=== PATIENT | female | born 1990 | race African-American/Black ===

== ENCOUNTER 2016-09-11 19:21 | Inpatient (IN) | payer OTHER ==
--- NOTE | ~2016-09-11 | DS ---
Unit #: [id number] #: [id number] Patient: HECTOR HERMAN [id number] [facility] [address] [place] [address] [id number] I MR#: [id number] NAME: HECTOR HERMAN ROOM: [facility] Age: 26 Sex: F Admission Date: 09/11/2016 : 1990 Discharge Date: 09/12/2016 Attending Physician: Danilo Mays M.D. DISCHARGE SUMMARY REASON FOR ADMISSION The patient is 26-year-old female, admitted to the [facility] unit after she had voiced suicidal ideation to her therapist. HOSPITAL COURSE The patient was admitted to the [facility] unit and placed on suicide precautions. All home medications were continued. The patient was seen by this physician on the morning of 09/12/2016, at that time, she vehemently denied suicidal ideation stating that she "just had a bad day." She cited her devotion to her children as reason to remain alive and stated a wish to attend buddhist for [employer] and an [employer] on the evening of the discharge. In the absence of active suicidal ideation, the patient was not felt to meet criteria for involuntary hospitalization. As per her request, discharge was ordered. FINAL DIAGNOSES Major depressive disorder, recurrent, moderate; asthma; hypertension; migraine headache; morbid obesity. DISPOSITION ON DISCHARGE The patient is discharged on the following medications; Proventil HFA 2 puffs q.4 hours p.r.n. shortness of air, Singulair 10 mg at bedtime for environmental allergies, Symbicort 2 puffs b.i.d. for shortness of air, clonazepam 1 mg at bedtime for insomnia, vitamin D 50,000 units weekly for vitamin supplementation, Zanaflex 4 mg q.8 hours p.r.n. muscle stiffness, Pristiq 100 mg daily for depression, Toprol-XL 50 mg once daily for hypertension, Flomax 0.4 mg once daily for urinary symptoms. DISCHARGE INSTRUCTIONS No dietary or physical restrictions were placed upon the patient at the time of discharge. FOLLOWUP She will follow through the auspices of previous providers in the [place], [place] area. PROGNOSIS Her prognosis is considered good. Dictated by... Danilo Mays M.D. Unit #: [id number] #: [id number] Patient: HECTOR HERMAN MARIA A/vani TD: 09/12/2016 23:05 JOB #: [id number] DISCHARGE SUMMARY Page 1 of 1 X Danilo Mays MD DISCHARGE SUMMARY
--- NOTE | ~2016-09-11 | HP ---
Unit #: [id number] #: [id number] Patient: HECTOR HERMAN [id number] [place] [address] [id number] I MR#: [id number] NAME: HECTOR HERMAN ROOM: [facility] Age: 26 Sex: F Admission Date: 09/11/2016 : 1990 Attending Physician: Danilo Mays M.D. Admitting Physician: Danilo Mays M.D. Primary Care Physician: Primary Care Physician No HISTORY AND PHYSICAL HISTORY OF PRESENT ILLNESS The patient is a 26-year-old female admitted to [address] [place] [address] on 09/11/2016 for suicidal ideation. PAST MEDICAL HISTORY 1. Morbid obesity. 2. Hypertension. 3. Migraines. 4. Allergies. 5. Asthma. PAST SURGICAL HISTORY 1. Cholecystectomy. 2. ALLERGIES Doxycycline and BuSpar. 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 She denies alcohol, tobacco and drug use. FAMILY HISTORY Noncontributory. REVIEW OF SYSTEMS CONSTITUTIONAL: No fever or chills. HEENT: Denies any sore throat, ear pain or runny nose. CARDIOVASCULAR: Denies chest pain, irregular heart rhythm or palpitations. CHEST: Denies shortness of breath or cough. No hemoptysis. GASTROINTESTINAL: Denies nausea, vomiting, diarrhea or chronic constipation. ENDOCRINE: Denies history of increased thirst or urination. No recent significant weight loss or gain. GENITOURINARY: Denies dysuria, frequency, or hematuria. SKIN: Denies any rashes. HEMATOLOGIC: Denies history of increased bleeding or bruising. MUSCULOSKELETAL: Denies any hot, swollen joints. No generalized muscle pain. NEUROLOGIC: Denies problems with vision or speech. No frequent, severe headaches. No numbness, tingling or weakness in any extremities. Denies loss of bladder or bowel control. Unit #: [id number] #: [id number] Patient: HECTOR HERMAN CURRENT MEDICATIONS 1. EpiPen. 2. Ventolin. 3. Singulair. 4. Dulera. 5. Klonopin. 6. Vitamin D. 7. Zanaflex. 8. Zomig. 9. Pristiq. 10. Metoprolol. 11. Tamsulosin. PHYSICAL EXAMINATION GENERAL: She is awake, alert, oriented in no acute distress. VITAL SIGNS: Temperature 98.5, heart rate 78, respirations 20, blood pressure 132/89. HEIGHT: 5 feet 4. WEIGHT: 348 pounds. SKIN: Warm and dry without rash or lesion. HEENT: Normocephalic. TMs not viewed. Oral and nasal passages clear. Conjunctivae clear. PERRLA. EOMs intact. NECK: Supple without lymphadenopathy or thyromegaly. HEART: Regular rate and rhythm without murmur. LUNGS: Clear. ABDOMEN: Soft, nontender. : Not done. EXTREMITIES: No evidence of cyanosis, clubbing or edema. Moves all without focal deficit. NEUROLOGICAL: Grossly within normal limits. Cranial Nerves: II: Visual lockhart are intact. III, IV AND : Extraocular movements are intact. Pupils are equal, round and reactive to light. V: Facial sensation is grossly normal. VII: Facial movements and expression are normal. VIII: Auditory acuity grossly intact. IX, X: Uvula is midline. Phonation is normal. XI: Patient shrugs shoulders and turns head normally. XII: Tongue protrudes in the midline. Sensory and Motor Function: Sensory and motor sensation is grossly normal. Motor: moves all extremities well. Coordination: Gait is normal. Deep Tendon Reflexes: Intact. IMPRESSION 1. Psychiatric admission. 2. Obesity. 3. Hypertension. 4. Migraines. 5. Allergies. 6. Asthma. RECOMMENDATIONS PSYCHIATRIC: Per psychiatrist. MEDICAL: No contraindications to participate in facility's activities. MEDICAL PROGNOSIS Good. MEDICAL CONDITION Unit #: [id number] #: [id number] Patient: HECTOR HERMAN. Dictated by... Dimas Alaniz/austin TD: 09/12/2016 16:25 JOB #: [id number] HISTORY AND PHYSICAL Page 1 of 1 X ALEXI VENTURA APRN HISTORY AND PHYSICAL
--- NOTE | ~2016-09-11 | PA ---
Unit #: [id number] #: [id number] Patient: HECTOR HERMAN [id number] [facility] [address] [place] [address] [id number] I MR#: [id number] NAME: HECTOR HERMAN ROOM: [facility] Age: 26 Sex: F Admission Date: 09/11/2016 : 1990 Date of Assessment: 09/12/2016 Attending Physician: Danilo Mays M.D. Admitting Physician: Danilo Mays M.D. Primary Care Physician: Primary Care Physician No PSYCHIATRIC ASSESSMENT IDENTIFYING INFORMATION The patient is a 26-year-old female admitted to the [address] [place] [address] Unit after she had voiced suicidal ideation to her therapist. CHIEF COMPLAINT None given. INFORMANT Patient and chart, reliability good. HISTORY OF PRESENT ILLNESS The patient is a 26-year-old female with no prior history of inpatient psychiatric treatment. She is followed by a therapist and nurse practitioner in the [facility] where she resides with her 6-year-old twin daughters. The patient had reported increasing depression without any real specific precipitant and had reported some passive suicidal ideation. The patient vehemently denies active suicidal ideation citing to her devotion to her children as reason to remain alive. 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 She reports no prior suicide attempts or gestures and denies current suicidal ideation. Her current psychotropic medications included clonazepam and Pristiq. The patient vehemently denies current suicidal ideation and denies recent changes in sleep or appetite. She states that she is "just having a bad day" and is requesting discharge. PAST PSYCHIATRIC HISTORY As above. PAST MEDICAL HISTORY Significant for history of morbid obesity, asthma, and hypertension. MEDICATIONS Flomax, Metoprolol, Pristiq, Zomig, Zanaflex, vitamin D, clonazepam, Dulera, Singulair, Ventolin, Epi-Pen. ALLERGIES BuSpar, doxycycline. FAMILY HISTORY Noncontributory. SOCIAL HISTORY The patient lives with her twin 6-year-old daughters. 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 She reports no use of alcohol, tobacco, or street drugs. MENTAL STATUS EXAMINATION Examination at this time reveals the patient to be a morbidly obese female appearing her stated age. She is in no apparent physical distress at the time of the examination. She is awake, alert, and oriented in all spheres. Her mood is euthymic, her affect full range. Speech is generally well coherent. There are no gross deficits in memory or cognition noted. Intelligence is judged to be in the average range based on fund of knowledge. The patient is cooperative throughout the interview. She denies current suicidal or homicidal ideation or psychotic features. Judgment and insight appear to be intact. ASSETS AND LIABILITIES The patient's assets: Motivation for change. Liabilities: Lack of support. DIAGNOSTIC IMPRESSION 1. Major depressive disorder, recurrent, moderate. 2. Morbid obesity. 3. Asthma. 4. Migraine headaches by history. 5. Hypertension. TREATMENT PLAN The patient is today requesting discharge and vehemently denies suicidal ideation. She will continue followup with her outpatient providers, and discharge will be ordered as per her request. Dictated by... Danilo Mays M.D. MARIA A/melony TD: 09/12/2016 13:44 JOB #: [id number] PSYCHIATRIC ASSESSMENT Page 1 of 1 X Danilo Mays MD X PSYCHIATRIC ASSESSMENT
== END 2016-09-12 12:35 | disposition home or self-care (01) | DRG 885 ==
LOC: P2L 19:21
DX: F33.1 Major depressive disorder, recurrent, moderate (principal); E66.01 Morbid (severe) obesity due to excess calories; I10 Essential (primary) hypertension; J45.909 Unspecified asthma, uncomplicated